=== PATIENT | female | born 1985 ===

== ENCOUNTER 2016-11-09 13:10 | Emergency (ER) | payer BC, OTHER ==
[2016-11-09 13:11] VITALS: BMI 27.4
[2016-11-09 13:31] VITALS: RESP 16; TEMP 98
[2016-11-09] MEDS ORDERED: TraMADol/Apap 37.5/325 mg Tab PO STA (13:51)
--- NOTE | 2016-11-09 14:44 | ED PDOC ---
Arrival/HPI - General Chief Complaint: Back Pain Time Seen by Provider: 11/09/16 13:41 Historian: Patient, Family - History of Present Illness Narrative History of Present Illness (Text): 11/09/16 13:43 Nicole Manzano is a 31 year old female, whose past medical history includes herniated disc surgery 10 years ago, presents to the Emergency department complaining of lower back pain that became worse last night. She notes that the pain starts in the upper left buttock radiates to the anterior L groin / pelvic area and down and behind her left thigh. Patient also reports this morning she wanted to urinate, but due to back pain, she took too long and did not get to the bathroom on time (there was no actual incontinence as noted in triage note) . Her last normal period was two weeks ago and she also states taking Valium prior to arrival, but there was no relief for pain. Patient denies fall, trauma , chest pain, shortness of breath, headache, fever, chills, cough, nausea, vomiting, diarrhea, paresthesias, focal weakness, sensory deficit, hematuria, dysuria or other complaints. Time/Duration: Other (pain since last night) Symptom Onset: Sudden Symptom Course: Worsening Activities at Onset: Light Modifying Factors (Text): Pain radiates to abdomen and down left thigh Context: Home Associated Symptoms (Text): None Past Medical History - Provider Review Nursing Documentation Reviewed: Yes - Infectious Disease Hx of Infectious Diseases: None - Tetanus Immunization Tetanus Immunization: Unknown - Cardiac Hx Cardiac Disorders: No - Pulmonary Hx Respiratory Disorders: No - Neurological Hx Neurological Disorder: No - HEENT Hx HEENT Disorder: No - Renal Hx Renal Disorder: No - Endocrine/Metabolic Hx Endocrine Disorders: No - Hematological/Oncological Hx Blood Disorders: No - Integumentary Hx Dermatological Disorder: No - Musculoskeletal/Rheumatological Hx Musculoskeletal Disorders: Yes Hx Back Pain: Yes - Gastrointestinal Hx Gastrointestinal Disorders: No - Genitourinary/Gynecological Hx Genitourinary Disorders: No - Psychiatric Hx Psychophysiologic Disorder: No Hx Depression: No Hx Emotional Abuse: No Hx Physical Abuse: No Hx Substance Use: No - Surgical History Hx Appendectomy: Yes Hx Orthopedic Surgery: Yes (BAck) - Suicidal Assessment Feels Threatened In Home Enviroment: No Family/Social History - Physician Review Nursing Documentation Reviewed: Yes Family/Social History: Unknown Family HX Smoking Status: Heavy Smoker > 10 Cigarettes Daily Hx Alcohol Use: No Hx Substance Use: No Hx Substance Use Treatment: No Allergies/Home Meds Allergies/Adverse Reactions: Allergies latex Allergy (Verified 11/09/16 13:30) RASH Review of Systems - Physician Review All systems were reviewed & negative as marked: Yes - Review of Systems Constitutional: Normal. absent: Fevers Eyes: Normal. absent: Vision Changes ENT: Normal Respiratory: Normal. absent: SOB, Cough Cardiovascular: Normal. absent: Chest Pain Gastrointestinal: Abdominal Pain. absent: Diarrhea, Nausea, Vomiting Genitourinary Female: Normal. absent: Dysuria, Hematuria Musculoskeletal: Back Pain (lower back pain). absent: Neck Pain Skin: Normal Neurological: Normal. absent: Headache, Dizziness, Gait Changes Endocrine: Normal. absent: Diaphoresis Hemo/Lymphatic: Normal Psychiatric: Normal Physical Exam Vital Signs Reviewed: Yes Vital Signs Temp Pulse Resp BP Pulse Ox 11/09/16 13:31 98 F 88 16 120/76 100 Temperature: Afebrile Blood Pressure: Normal Pulse: Regular Respiratory Rate: Normal Appearance: Positive for: Well-Appearing, Non-Toxic, Comfortable Pain Distress: None Mental Status: Positive for: Alert and Oriented X 3 - Systems Exam Head: Present: Atraumatic, Normocephalic Pupils: Present: PERRL Conjunctiva: Present: Normal Mouth: Present: Moist Mucous Membranes Pharnyx: Present: Normal. No: ERYTHEMA, EXUDATE Neck: Present: Normal Range of Motion Respiratory/Chest: Present: Clear to Auscultation, Good Air Exchange. No: Respiratory Distress, Accessory Muscle Use Cardiovascular: Present: Regular Rate and Rhythm, Normal S1, S2. No: Murmurs Abdomen: Present: Normal Bowel Sounds. No: Tenderness, Distention, Peritoneal Signs Back: No: CVA Tenderness, Midline Tenderness Upper Extremity: Present: Normal Inspection. No: Cyanosis, Edema Lower Extremity: Present: Normal Inspection. No: Edema Neurological: Present: GCS=15, CN II-XII Intact, Speech Normal Skin: Present: Warm, Dry, Normal Color. No: Rashes Psychiatric: Present: Alert, Oriented x 3, Normal Insight, Normal Concentration Medical Decision Making ED Course and Treatment: 11/09/16 13:43 Impression: 31 year old female with lower back pain. Differential Diagnosis included but are not limited to: musculoskeletal pain vs. UTI vs. renal stone Plan: -- Urinalysis -- Labs -- Valium, Toradol, and Ultracet -- Reassess and disposition Progress notes: 11/09/16 16:37 Patient's pain is mainly worse with movement and radiating down the posterior thigh. Urine is normal. HCG is negative. She is feeling better after meds here in the ED. Pain radiates toward the front, but no abdominal tenderness. Will d/c on nsaid, muscle relaxant, and ultram, and patient would like to follow up with back specialist / neurosurgery given her history of back surgery. Will d/c. - Lab Interpretations Lab Results: Lab Results 11/09/16 15:00: Urine Color Yellow, Urine Appearance Clear, Urine pH 6.0, Ur Specific [place] <= 1.005, Urine Protein Negative, Urine Glucose (UA) Negative, Urine Ketones Negative, Urine Blood Negative, Urine Nitrate Negative, Urine Bilirubin Negative, Urine Urobilinogen 0.2, Ur Leukocyte Esterase Negative I have reviewed the lab results: Yes - Medication Orders Current Medication Orders: Discontinued Medications Diazepam (Valium) 5 mg PO ONCE ONE Stop: 11/09/16 13:52 Last Admin: 11/09/16 15:08 Dose: 5 mg Ketorolac Tromethamine (Toradol) 60 mg IM STAT STA Stop: 11/09/16 13:51 Last Admin: 11/09/16 15:06 Dose: 60 mg Tramadol/Acetaminophen (Ultracet 37.5/325 Mg) 2 tab PO STAT STA Stop: 11/09/16 13:52 Last Admin: 11/09/16 15:06 Dose: 2 tab - Scribe Statement The provider has reviewed the documentation as recorded by the Scribe 11/09/2016 Shannan Campos All medical record entries made by the Scribe were at my direction and personally dictated by me. I have reviewed the chart and agree that the record accurately reflects my personal performance of the history, physical exam, medical decision making, and the department course for this patient. I have also personally directed, reviewed, and agree with the discharge instructions and disposition. Disposition/Present on Arrival - Present on Arrival Any Indicators Present on Arrival: No History of DVT/PE: No History of Uncontrolled Diabetes: No Urinary Catheter: No History of Decub. Ulcer: No History Surgical Site Infection Following: None - Disposition Have Diagnosis and Disposition been Completed?: Yes Diagnosis: Back pain Disposition: HOME/ ROUTINE Disposition Time: 16:30 Patient Plan: Discharge Condition: GOOD Discharge Instructions (ExitCare): Acute Low Back Pain (ED) Additional Instructions: Take the medications as prescribed. Avoid any heavy lifting. Follow up with neurosurgery for your re-evaluation. Return to the emergency department if any new concerning symptoms. Prescriptions: Baclofen [Lioresal] 1 tab PO TID PRN #15 tab PRN Reason: Pain, Moderate (4-7) Naproxen [Naprosyn] 500 mg PO BID PRN #30 tab PRN Reason: Pain traMADol/Acetaminophen [Ultracet 325 MG-37.5 MG] 1 tab PO Q8H PRN #15 tab PRN Reason: Pain, Severe (8-10) Referrals: Gurdeep Orosco MD [Staff Provider] - Follow up with primary
[2016-11-09 15:42] LABS: URINE BILIRUBIN NEGATIVE (NEGATIVE); URINE BLOOD NEGATIVE (NEGATIVE); URINE GLUCOSE (UA) NEGATIVE (NEGATIVE); URINE NITRATE NEGATIVE (NEGATIVE); URINE PROTEIN NEGATIVE mg/dL (<30 mg/dL); URINE UROBILINOGEN 0.2 E.U./dL (<1 E.U./dL)
[2016-11-09 15:47] LABS: URINE APPEARANCE CLEAR (CLEAR); URINE COLOR YELLOW (YELLOW); URINE LEUKOCYTE ESTERASE NEGATIVE Leu/uL (NEGATIVE)
[2016-11-09 17:05] VITALS: BP 118/78; PULSE 72; O2SAT 99
== END 2016-11-09 17:04 | disposition home or self-care (01) ==
LOC: ED 13:10
DX: M54.5 Low back pain (principal)
CPT/HCPCS: 81003; 87086; 96372; 99283; J1885